=== PATIENT | male | born 1955 | race Hispanic/Latino ===

== ENCOUNTER 2018-09-20 14:50 | Inpatient (IN) | payer SELFPAY ==
[~2018-09-20] VITALS: Ht 175.3 cm; Wt 80.2 kg
[2018-09-20] MEDS ORDERED: IPRATROPIUM/ALBUTEROL SULFATE 3 ML SOLUTION IH ONE (15:03)
[2018-09-20] MEDS ORDERED: ZOSYN 3.375GM+NS 50ML 50 ML IV ONE (15:17)
[2018-09-20] MEDS ORDERED: FUROSEMIDE 10 MG/ML 4ML VIAL ONE (15:17)
[2018-09-20] MEDS ORDERED: FUROSEMIDE 10 MG/ML 2ML VIAL ONE (15:17)
[2018-09-20] MEDS ORDERED: METHYLPREDNISOLONE SOD SUCC 125MG/2ML VIAL ONE (15:17)
[2018-09-20 15:29] LABS: BASOPHILS % (AUTO) 0.4 % (0.0-5.0); EOSINOPHILS % (AUTO) 0.5 % (0.0-8.0); HEMATOCRIT 32.7 % (42-54); LYMPHOCYTES % (AUTO) 10.5 % (21.0-51.0); MEAN CORPUSCULAR HEMOGLOBIN 30.1 pg (27.0-33.0); MEAN CORPUSCULAR HGB CONC 34.7 g/dL (32.0-36.0); MEAN CORPUSCULAR VOLUME 86.7 fL (79-99); MONOCYTES % (AUTO) 8.4 % (3.0-13.0); NEUTROPHILS % (AUTO) 80.2 % (40.0-77.0); PLATELET COUNT (AUTO) 307 K/uL (130-400); RED BLOOD CELL COUNT(AUTO) 3.78 MIL/uL (4.50-6.20); RED CELL DISTRIBUTION WIDTH 14.4 % (11.0-15.5); WHITE BLOOD COUNT (AUTO) 11.7 K/uL (4.8-10.8)
[2018-09-20 15:41] LABS: ABG BASE EXCESS -0.6 mmol/L (-2.0-3.0); ABG HCO3 23.8 mmol/L (21.0-28.0); ABG OXYGEN SATURATION 96.5 % (95.0-99.0); ABG PCO2 38 mmHg (35-48)
[2018-09-20 15:52] LABS: CREATININE 2.3 mg/dL (0.5-1.5); POTASSIUM 4.7 mmol/L (3.5-5.1)
[2018-09-20 15:57] LABS: ALBUMIN 3.5 g/dL (3.5-5.0); BILIRUBIN,TOTAL 0.8 mg/dL (0.2-1.0); TOTAL PROTEIN, SERUM 7.5 g/dL (6.0-8.3)
[2018-09-20 16:03] LABS: B-TYPE NATRIURETIC PEPTIDE 853 pg/mL (0-100)
[2018-09-20] MEDS ORDERED: LEVOFLOXACIN 500 MG/D5W 100 ML 100 ML ONE (17:46)
[2018-09-20] MEDS ORDERED: VANCOMYCIN 1GM+NS 250ML 250 ML IV ONE (18:16)
[2018-09-20] MEDS ORDERED: ENOXAPARIN SODIUM 80 MG/0.8 ML SQ SCH (18:45)
[2018-09-20] MEDS ORDERED: ACETAMINOPHEN 325 MG TAB PO PRN ×2 (18:45)
[2018-09-20] MEDS ORDERED: NITROGLYCERIN 0.4 MG SL TAB SL PRN (18:45)
[2018-09-20] MEDS ORDERED: DEXTROSE 50%-WATER 50 ML DISP.SYRIN IV PRN (18:45)
[2018-09-20] MEDS ORDERED: GLUCAGON 1MG KIT 1 MG ML IM PRN (18:45)
[2018-09-20] MEDS ORDERED: ONDANSETRON HCL 4 MG/2 ML VIAL IV PRN (18:45)
[2018-09-20] MEDS ORDERED: ASPIRIN 325MG EC TAB 325 MG TABLET.DR PO ONE (18:45)
[2018-09-20 19:43] LABS: HEMOGLOBIN A1C 7.4 % (4.0-6.0)
[2018-09-20] MEDS: INSULIN HUMULIN R 100 UNIT/ML 3ML SQ SCH (21:00)
[2018-09-20] MEDS ORDERED: VANCOMYCIN PROTOCOL PER PHARMACY IV SCH (21:15)
[2018-09-20] MEDS: IPRATROPIUM/ALBUTEROL SULFATE 3 ML SOLUTION IH SCH (21:33)
[2018-09-20] MEDS ORDERED: METHYLPREDNISOLONE SOD SUCC 40MG/ML 1ML IVP SCH (22:00)
[2018-09-20] MEDS ORDERED: ASPIRIN 325 MG TABLET ONE (22:11)
[2018-09-20] MEDS ORDERED: FAMOTIDINE 20MG TAB 20 MG TAB ONE (22:11)
[2018-09-20] MEDS ORDERED: ZOSYN 3.375GM+NS 50ML 50 ML IV SCH (23:00)
[2018-09-20] MEDS ORDERED: INSULIN HUMULIN R 100 UNIT/ML 3ML ONE (23:20)
[2018-09-21] LABS: APPEARANCE,URINE Clear (CLEAR); BILIRUBIN,URINE Negative (NEGATIVE); COLOR,URINE Yellow (YELLOW); GLUCOSE, URINE (UA) Negative (NEGATIVE); KETONES,URINE Negative (NEGATIVE); LEUKOCYTE ESTERASE ,URINE Negative (NEGATIVE); NITRATE,URINE Negative (NEGATIVE); OCCULT BLOOD,URINE Negative (NEGATIVE); PROTEIN,URINE Negative (NEGATIVE); UROBILINOGEN,URINE 0.2 mg/dL (0.2-1.0)
[2018-09-21 00:21] LABS: TROPONIN I 0.09 ng/mL (0.00-0.06)
[2018-09-21] MEDS ORDERED: SODIUM CHLORIDE 3% FOR INHALATION 4 ML/AMP VIAL.NEB IH ONE (01:13)
[2018-09-21] MEDS: IPRATROPIUM/ALBUTEROL SULFATE 3 ML SOLUTION IH SCH ×4 (01:37→23:46)
[2018-09-21] MEDS: FUROSEMIDE 10 MG/ML 4ML VIAL IV SCH ×2 (05:00→17:00)
[2018-09-21] MEDS ORDERED: FUROSEMIDE 10 MG/ML 4ML VIAL ONE ×2 (05:26→17:51)
[2018-09-21] MEDS ORDERED: ZOSYN 3.375GM+NS 50ML 50 ML IV ONE ×2 (05:26→17:51)
[2018-09-21 06:09] LABS: HEMATOCRIT 31.2 % (42-54); MEAN CORPUSCULAR HEMOGLOBIN 29.5 pg (27.0-33.0); MEAN CORPUSCULAR HGB CONC 34.1 g/dL (32.0-36.0); MEAN CORPUSCULAR VOLUME 86.4 fL (79-99); PLATELET COUNT (AUTO) 291 K/uL (130-400); RED CELL DISTRIBUTION WIDTH 14.6 % (11.0-15.5); WHITE BLOOD COUNT (AUTO) 6.7 K/uL (4.8-10.8)
[2018-09-21 06:25] LABS: ALBUMIN 3.1 g/dL (3.5-5.0); BILIRUBIN,TOTAL 0.7 mg/dL (0.2-1.0); CREATININE 2.3 mg/dL (0.5-1.5); MAGNESIUM 2.5 mg/dL (1.80-2.40); POTASSIUM 4.9 mmol/L (3.5-5.1); TOTAL PROTEIN, SERUM 7.4 g/dL (6.0-8.3)
[2018-09-21 06:28] LABS: TROPONIN I 0.08 ng/mL (0.00-0.06)
[2018-09-21] MEDS ORDERED: IPRATROPIUM/ALBUTEROL SULFATE 3 ML SOLUTION IH ONE ×2 (07:04→09:57)
[2018-09-21 07:12] LABS: LYMPHOCYTES % (MANUAL) 9 % (22-44); MAN.DIFF COMMENT-IMPRESSION MANUAL DIFFERENTIAL; MONOCYTES % (MANUAL) 1 % (2-9); PLATELET MORPHOLOGY COMMENT ADEQUATE; SEGMENTED NEUTROPHILS % 90 % (40-70)
[2018-09-21] MEDS ORDERED: RENAL DOSE IV SCH (07:15)
[2018-09-21] MEDS: INSULIN HUMULIN R 100 UNIT/ML 3ML SQ SCH ×4 (07:30→20:50)
[2018-09-21] MEDS ORDERED: FAMOTIDINE 20MG TAB 20 MG TAB ONE (08:20)
[2018-09-21] MEDS ORDERED: ASPIRIN 325MG EC TAB 325 MG TABLET.DR PO ONE (08:20)
[2018-09-21] MEDS ORDERED: ENOXAPARIN SODIUM 60 MG/0.6 ML SQ ONE (08:20)
[2018-09-21] MEDS ORDERED: INSULIN HUMULIN R 100 UNIT/ML 3ML ONE ×3 (08:21→16:35)
[2018-09-21] MEDS: FAMOTIDINE 20MG TAB 20 MG TAB PO SCH (09:00)
[2018-09-21] MEDS: ASPIRIN 325MG EC TAB 325 MG TABLET.DR PO SCH (09:00)
[2018-09-21] MEDS: ENOXAPARIN SODIUM 60 MG/0.6 ML SQ SCH (09:00)
--- NOTE | 2018-09-21 11:13 | NUR ---
[facility] met with pt and at bedside. Celeste Hardy [phone]. Per , pt is unemployed, independent of all ADLS, no in home care services or DME. Pt is self pay, sees Mustapha Teran and has no rx coverage. reports pt is able to purchase meds. Denies dc needs, plan is home with . Addendum: 09/21/18 at 1116 by JIMI LAFLEUR Amended: Links added.
[2018-09-21] MEDS ORDERED: METHYLPREDNISOLONE SOD SUCC 40MG/ML 1ML ONE ×2 (11:18→17:51)
[2018-09-21] MEDS ORDERED: METOLAZONE 2.5 MG TABLET PO SCH (12:30)
[2018-09-21] MEDS: METHYLPREDNISOLONE SOD SUCC 40MG/ML 1ML IVP SCH ×2 (14:00→20:43)
[2018-09-21] MEDS: VANCOMYCIN 1GM+NS 250ML 250 ML IV SCH (18:00)
[2018-09-21] MEDS ORDERED: LEVOFLOXACIN 500 MG/D5W 100 ML 100 ML IV SCH (18:00)
[2018-09-21 18:45] VITALS: BP 146/79
[2018-09-21 19:30] VITALS: BP 138/74
[2018-09-21] MEDS: ZOSYN 3.375GM+NS 50ML 50 ML IV SCH (20:43)
[2018-09-21 23:32] VITALS: BP 138/85
[2018-09-22 03:45] LABS: BASOPHILS % (AUTO) 0.1 % (0.0-5.0); HEMATOCRIT 29.7 % (42-54); LYMPHOCYTES % (AUTO) 4.1 % (21.0-51.0); MEAN CORPUSCULAR HEMOGLOBIN 30.7 pg (27.0-33.0); MEAN CORPUSCULAR HGB CONC 35.6 g/dL (32.0-36.0); MEAN CORPUSCULAR VOLUME 86.2 fL (79-99); MONOCYTES % (AUTO) 3.8 % (3.0-13.0); PLATELET COUNT (AUTO) 279 K/uL (130-400); RED BLOOD CELL COUNT(AUTO) 3.45 MIL/uL (4.50-6.20); RED CELL DISTRIBUTION WIDTH 14.5 % (11.0-15.5); WHITE BLOOD COUNT (AUTO) 8.9 K/uL (4.8-10.8)
[2018-09-22 03:49] VITALS: BP 150/88
[2018-09-22 04:01] LABS: CREATININE 2.4 mg/dL (0.5-1.5); MAGNESIUM 2.2 mg/dL (1.80-2.40); PHOSPHORUS 4.7 mg/dL (2.5-4.9); POTASSIUM 4.1 mmol/L (3.5-5.1)
[2018-09-22 04:02] LABS: B-TYPE NATRIURETIC PEPTIDE 1460 pg/mL (0-100)
[2018-09-22 04:16] LABS: ABG HCO3 23.8 mmol/L (21.0-28.0); ABG OXYGEN SATURATION 98.7 % (95.0-99.0); ABG PCO2 36 mmHg (35-48)
[2018-09-22] MEDS: FUROSEMIDE 10 MG/ML 4ML VIAL IV SCH ×2 (05:04→16:48)
[2018-09-22] MEDS: METHYLPREDNISOLONE SOD SUCC 40MG/ML 1ML IVP SCH ×3 (05:18→20:34)
[2018-09-22] MEDS: INSULIN HUMULIN R 100 UNIT/ML 3ML SQ SCH ×4 (05:53→20:40)
[2018-09-22] MEDS: IPRATROPIUM/ALBUTEROL SULFATE 3 ML SOLUTION IH SCH ×4 (07:00→23:32)
[2018-09-22] MEDS: ASPIRIN 325MG EC TAB 325 MG TABLET.DR PO SCH (07:40)
[2018-09-22] MEDS: FAMOTIDINE 20MG TAB 20 MG TAB PO SCH (07:40)
--- NOTE | 2018-09-22 07:40 | NUR ---
RESTING IN BED WITH HOB AT 15 DEGREES, RESP.'S EVEN AND UNLABORED. AAOX3. PLEASANT, SMILES, TALKATIVE. DENIES ANY CURRENT SOB, DENIES ANY CURRENT PAIN. STATES BREATHING "MUCH BETTER." ABD SOFT WITH (+) BOWEL SOUNDS, DENIES ANY C/O N/V; STATES LAST BM WAS PRIOR TO ARRIVAL, LOOSE. PT. STATES TOOK LAXATIVE AT HOME AND "CLEANED HIMSELF OUT." VOIDS, W/O C/O. COMPLETE ASSESSMENT DONE. CALL LIGHT WITHIN REACH, VERBALIZED ABILITY TO USE. BED LOW, SIDE RAILS UP X2. SPOUSE AT BEDSIDE.
[2018-09-22] MEDS: ZOSYN 3.375GM+NS 50ML 50 ML IV SCH ×2 (07:43→20:33)
[2018-09-22] MEDS: ENOXAPARIN SODIUM 60 MG/0.6 ML SQ SCH (07:44)
[2018-09-22 07:51] VITALS: BP 153/95
[2018-09-22] MEDS ORDERED: METOLAZONE 2.5 MG TABLET PO SCH (09:30)
--- NOTE | 2018-09-22 11:47 | NUR ---
DR. REEDER IN ROOM ASSESSING/SPEAKING WITH PT. ORDERS RECEIVED.
[2018-09-22 11:49] VITALS: BP 147/87
[2018-09-22 16:01] VITALS: BP 138/83
[2018-09-22] MEDS: VANCOMYCIN 1GM+NS 250ML 250 ML IV SCH (17:48)
[2018-09-22] MEDS ORDERED: LEVOFLOXACIN 500 MG/D5W 100 ML 100 ML IV SCH (18:00)
--- NOTE | 2018-09-22 18:19 | NUR ---
DR. JERRY IN ROOM SPEAKING WITH PT. AND PT.'S DAUGHTER AT BEDSIDE RE:PLAN OF CARE; QUESTIONS ANSWERED BY DR. JERRY.
[2018-09-22 19:29] VITALS: BP 134/73
[2018-09-22 23:27] VITALS: BP 148/79
[2018-09-23 03:51] LABS: MEAN CORPUSCULAR HEMOGLOBIN 29.8 pg (27.0-33.0); MEAN CORPUSCULAR HGB CONC 34.5 g/dL (32.0-36.0); MEAN CORPUSCULAR VOLUME 86.5 fL (79-99); PLATELET COUNT (AUTO) 321 K/uL (130-400); RED BLOOD CELL COUNT(AUTO) 3.59 MIL/uL (4.50-6.20); WHITE BLOOD COUNT (AUTO) 8.7 K/uL (4.8-10.8)
[2018-09-23 03:59] LABS: ALBUMIN 3.1 g/dL (3.5-5.0); POTASSIUM 4.2 mmol/L (3.5-5.1)
[2018-09-23 04:08] LABS: % IRON SATURATION 31.8 % (30-44); B-TYPE NATRIURETIC PEPTIDE 962 pg/mL (0-100)
[2018-09-23 04:11] VITALS: BP 139/86
[2018-09-23] MEDS: FUROSEMIDE 10 MG/ML 4ML VIAL IV SCH (05:24)
[2018-09-23] MEDS: INSULIN HUMULIN R 100 UNIT/ML 3ML SQ SCH ×2 (05:46→11:38)
[2018-09-23] MEDS: IPRATROPIUM/ALBUTEROL SULFATE 3 ML SOLUTION IH SCH ×2 (06:14→11:46)
[2018-09-23 07:19] VITALS: BP 151/89
[2018-09-23] MEDS ORDERED: PREDNISONE 20 MG TABLET PO SCH (09:00)
[2018-09-23] MEDS ORDERED: FUROSEMIDE 40 MG TABLET PO SCH (09:00)
[2018-09-23] MEDS: ASPIRIN 325MG EC TAB 325 MG TABLET.DR PO SCH (09:12)
[2018-09-23] MEDS: ZOSYN 3.375GM+NS 50ML 50 ML IV SCH (09:12)
[2018-09-23] MEDS: ENOXAPARIN SODIUM 60 MG/0.6 ML SQ SCH (09:13)
[2018-09-23] MEDS: FAMOTIDINE 20MG TAB 20 MG TAB PO SCH (09:13)
[2018-09-23 11:03] VITALS: BP 157/89
--- NOTE | 2018-09-23 11:35 | NUR ---
DR. REEDER IS MAKING HIS ROUNDS. BENCHMARK IS SIGNING OFF.
[2018-09-23] MEDS ORDERED: LACTULOSE 20 GM/30 ML UDCUP ONE (15:13)
[2018-09-23] MEDS ORDERED: LACTULOSE 20 GM/30 ML UDCUP PO SCH (15:15)
[2018-09-23] MEDS ORDERED: LISI2.5T2 PO (15:36)
[2018-09-23] MEDS ORDERED: ASPI-555 PO (15:36)
[2018-09-23] MEDS ORDERED: FURO40TA5 PO (15:36)
[2018-09-23] MEDS ORDERED: CARV3.1262 PO (15:36)
== END 2018-09-23 16:15 | disposition home or self-care (01) | DRG 871 ==
LOC: EDH 14:50 → EDHIP 14:51 → 2AH 09-21 18:50
PROVIDERS: ADMIT Internal Medicine; ATTEND Internal Medicine
PROC: 5A09357 Assistance with Respiratory Ventilation, Less than 24 Consecutive Hours, Continuous Positive Airway Pressure (ICD-10-PCS; principal; 2018-09-21)
DX: A41.9 Sepsis, unspecified organism (principal); J18.9 Pneumonia, unspecified organism; I50.23 Acute on chronic systolic (congestive) heart failure; J96.01 Acute respiratory failure with hypoxia; J96.02 Acute respiratory failure with hypercapnia; I13.0 Hypertensive heart and chronic kidney disease with heart failure and stage 1 through stage 4 chronic kidney disease, or unspecified chronic kidney disease; I42.0 Dilated cardiomyopathy; E87.1 Hypo-osmolality and hyponatremia; N17.9 Acute kidney failure, unspecified; R65.20 Severe sepsis without septic shock; N18.3 Chronic kidney disease, stage 3 (moderate); E11.22 Type 2 diabetes mellitus with diabetic chronic kidney disease; E11.51 Type 2 diabetes mellitus with diabetic peripheral angiopathy without gangrene; E11.65 Type 2 diabetes mellitus with hyperglycemia; E78.00 Pure hypercholesterolemia, unspecified; I25.10 Atherosclerotic heart disease of native coronary artery without angina pectoris; I34.0 Nonrheumatic mitral (valve) insufficiency; R79.1 Abnormal coagulation profile; R74.8 Abnormal levels of other serum enzymes; Z99.81 Dependence on supplemental oxygen; Z89.421 Acquired absence of other right toe(s); Z87.01 Personal history of pneumonia (recurrent); Z83.3 Family history of diabetes mellitus; Z82.49 Family history of ischemic heart disease and other diseases of the circulatory system
CPT/HCPCS: 36415; 36600; 71045; 76770; 80048; 80053; 80061; 81003; 82040; 82550; 82803; 82948; 83036; 83540; 83550; 83605; 83735; 83874; 83880; 84100; 84145; 84300; 84484; 85025; 85027; 85378; 86140; 87040; 87071; 87088; 87205; 87486; 87581; 87633; 87798; 87804; 93005; 93306; 93970; 94640; 94660; 94664; 99291; G0378; J1650; J1815; J1940; J1956; J2543; J2920; J2930; J3370

== ENCOUNTER 2020-05-30 23:56 | Emergency (ER) | payer OTHER, MEDICARE ==
[~2020-05-30 23:56] MED LIST: ASPI-556 PO; CARV25TA77 PO; CLOP75TA14 PO; FAMO40TA7 PO; FURO40TA5 PO; HYDR-4153 PO; LEVO25TA54 PO; LISI-617 PO; LUBI24CA2 PO
[2020-05-30] MEDS ORDERED: EPINEPHRINE 0.1 MG/ML 10 ML SYG IVP ONE (23:57)
[2020-05-30] MEDS ORDERED: LIDOCAINE PF 2% 5ML ABBOJECT IVP ONE (23:57)
[2020-05-30] MEDS ORDERED: SODIUM BICARB 8.4% 50ML SYRINGE IVP ONE (23:57)
[2020-05-30] MEDS ORDERED: CALCIUM CHLORIDE 100 MG/ML 10 ML SYG IVP ONE (23:57)
[2020-05-31] MEDS ORDERED: EPINEPHRINE 0.1 MG/ML 10 ML SYG ONE ×2 (00:07→00:17)
[2020-05-31 00:31] LABS: CREATININE 3.3 mg/dL (0.5-1.5); POTASSIUM 5.4 mmol/L (3.5-5.1)
[2020-05-31 00:35] LABS: ALBUMIN 4.2 g/dL (3.5-5.0); BILIRUBIN,TOTAL 0.3 mg/dL (0.2-1.0); TOTAL PROTEIN, SERUM 7.7 g/dL (6.0-8.3)
[2020-05-31 00:56] LABS: BASOPHILS % (AUTO) 0.6 % (0.0-5.0); EOSINOPHILS % (AUTO) 1.9 % (0.0-8.0); HEMATOCRIT 43.7 % (42-54); LYMPHOCYTES % (AUTO) 50.3 % (21.0-51.0); MEAN CORPUSCULAR HGB CONC 32.7 g/dL (32.0-36.0); MEAN CORPUSCULAR VOLUME 94.8 fL (79-99); MONOCYTES % (AUTO) 6.2 % (3.0-13.0); NEUTROPHILS % (AUTO) 40.7 % (40.0-77.0); PLATELET COUNT (AUTO) 317 K/uL (130-400); RED BLOOD CELL COUNT(AUTO) 4.61 MIL/uL (4.50-6.20); RED CELL DISTRIBUTION WIDTH 12.7 % (11.0-15.5); WHITE BLOOD COUNT (AUTO) 7.8 K/uL (4.8-10.8)
== END 2020-05-31 00:19 | disposition home or self-care (01) ==
LOC: EDH 23:56
DX: I46.9 Cardiac arrest, cause unspecified (principal); Z20.828 Contact with and (suspected) exposure to other viral communicable diseases; E11.9 Type 2 diabetes mellitus without complications; I10 Essential (primary) hypertension; Z98.890 Other specified postprocedural states
CPT/HCPCS: 31500; 36415; 80053; 82550; 82948; 84484; 85025; 87426; 92950; 99285; J0171 ×3; J2001; J3490 ×2